=== PATIENT | male | born 1950 | race Caucasian/White ===

== ENCOUNTER 2024-11-25 13:06 | Outpatient (CLI) | payer MEDICARE, SELFPAY ==
--- NOTE | 2024-11-25 15:00 | CRLHL7_ITS ---
For Patients: As a result of the Century Cures Act, medical imaging exams and procedure reports are released immediately into your electronic medical record. You may view this report before your referring provider. If you have questions, please contact your health care provider. 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 images were obtained for attenuation correction and localization, and do not replace a diagnostic quality examination. Blood glucose: 65 mg/dL. Comparison: None Findings: Liver background: SUVMean 2.9 Mediastinal blood pool background: SUVMean 2.3 Head and Neck Brain: No abnormal foci of uptake appreciated. Sinuses, orbits, mastoids: No significant abnormality or abnormal uptake appreciated. Oral cavity, pharynx, larynx: No significant abnormality or abnormal uptake appreciated. Lymph nodes: No enlarged or avid nodes appreciated. Thyroid: Grossly unremarkable. Chest Lungs: There is a 6 x 4 millimeter nodule within the right middle lobe/fissure without increased uptake, unlikely to represent metabolically active malignancy. No abnormal foci of uptake or concerning mass lesion appreciated. Mediastinum: Calcified coronary arterial and aortic atherosclerosis. Lymph nodes: No enlarged or avid nodes appreciated. Abdomen and Pelvis Hepatobiliary: No abnormal foci of uptake. No significant abnormality appreciated. Spleen: Unremarkable. Pancreas: Unremarkable. Adrenal glands: Unremarkable. Kidneys: Parenchyma appears grossly unremarkable with no abnormal uptake appreciated. No calculi. No hydronephrosis. Bowel: No abnormal focal uptake appreciated. No mass lesion. Vascular: Calcified atherosclerosis. Lymph nodes: No enlarged or avid nodes appreciated. Peritoneum: No avid mass. No free air. No free fluid. : No abnormal uptake appreciated. Soft tissues: Focal uptake along the soft tissues of the right foot 1st digit likely degenerative in nature. Bones: No abnormal uptake. No lytic or blastic lesion. No acute or subacute appearing fracture. Degenerative changes of the spine and pelvis. Impression: No evidence of FDG avid disease. Dictated by Gilmar Hogan MD @ 11/28/2024 5:18:37 PM (Electronically Signed)
== END 2024-11-25 13:07 | disposition home or self-care (01) ==
LOC: RAD 13:07
PROVIDERS: PCP Family Medicine; Visit Provider Internal Medicine Hematology & Oncology
DX: C43.62 Malignant melanoma of left upper limb, including shoulder (principal)
CPT/HCPCS: 78816; A9552

== ENCOUNTER 2025-02-21 09:00 | Outpatient (RCR) | payer MEDICARE, SELFPAY ==
--- NOTE | 2024-08-20 13:51 | URNOTE ---
Request received for authorization for Keytruda (pembrolizumab) (J9271) 200 mg every 21 days, total of 18 doses (3600mg), date range: 09/06/2024 to 09/05/2025. Prior authorization is approved per [employer] on behalf of [facility] Ref#[id number].
[2024-09-06 10:49] LABS: Hematocrit 41.3 % (37.0-53.0); Hemoglobin* 14.1 gm/dL (13.5-17.5); Immature Granulocytes Abs Auto 0.01 K/uL (0.00-0.30); Immature Granulocytes Pct Auto 0.1 %; Mean Corpuscular HGB Conc 34 gm/dL (32-36); Mean Corpuscular Hemoglobin 30 pg (26-34); Mean Corpuscular Volume 89 fL (80-100); RDW Coefficient of Variation % 14.0 % (11.5-15.5); Red Blood Count 4.64 m/uL (4.30-5.90); White Blood Count* 8.33 K/uL (4.50-11.00)
[2024-09-06 10:50] LABS: Lymphocytes Absolute Auto 1.60 K/uL (0.90-2.90); Slide Review Reflex No
[2024-09-06 11:02] LABS: Albumin* 4.3 g/dL (3.3-5.0); Chloride* 107 mmol/L (96-114); Sodium* 141 mmol/L (135-149)
[2024-09-06 11:03] LABS: Potassium* 3.9 mmol/L (3.6-5.1)
[2024-09-06 11:05] LABS: Alanine Aminotransferase* 26 U/L (4-50); Alkaline Phosphatase* 59 U/L (40-150); Anion Gap 9 mEq/L (7-15); Aspartate Amino Transferase* 44 U/L (12-35); Bilirubin Total* 0.6 mg/dL (0.1-1.5); Blood Urea Nitrogen* 22 mg/dL (7-30); Carbon Dioxide* 25 mmol/L (20-32); Creatinine* 0.8 mg/dL (0.5-1.5); Est. Creatinine Clearance* 75.11; Estimated Glomerular Filt Rate 92 ml/min; Total Protein* 7.3 g/dL (6.0-8.3)
[2024-09-06 11:06] LABS: Calcium* 8.9 mg/dL (8.4-10.6); Glucose* 85 mg/dL (60-115)
[2024-09-06] MEDS: PEMBROLIZUMAB 200 MG, TUBING PRIMARY 1 EACH, In-line 0.2 micron filter set 1 EACH in 0.... 216 MG IVPB (12:25)
[2024-09-06] MEDS: SODIUM CHLORIDE 0.9 % (FLUSH) 10 ML SYRINGE IVF (12:27)
--- NOTE | 2024-09-06 16:03 | ONC.NURNOTE ---
PSDS = 0 no supportive services requested no concerns
--- NOTE | 2024-09-07 15:09 | ONC.NURNOTE ---
post treatment follow up message left on voice mail to call [facility] checking on tolerance and if any concerns after yesterday's treatment
[2024-09-27 08:07] VITALS: BP 153/86; PULSE 65; RESP 20; TEMP 35.6; O2SAT 99
[2024-09-27 08:31] LABS: Hematocrit 41.0 % (37.0-53.0); Hemoglobin* 13.8 gm/dL (13.5-17.5); Immature Granulocytes Abs Auto 0.00 K/uL (0.00-0.30); Immature Granulocytes Pct Auto 0.0 %; Lymphocytes Absolute Auto 1.92 K/uL (0.90-2.90); Mean Corpuscular HGB Conc 34 gm/dL (32-36); Mean Corpuscular Hemoglobin 30 pg (26-34); Mean Corpuscular Volume 89 fL (80-100); RDW Coefficient of Variation % 13.6 % (11.5-15.5); Red Blood Count 4.61 m/uL (4.30-5.90); White Blood Count* 5.25 K/uL (4.50-11.00)
[2024-09-27 08:39] LABS: Slide Review Reflex No
[2024-09-27 08:51] LABS: Albumin* 4.4 g/dL (3.3-5.0); Chloride* 104 mmol/L (96-114); Potassium* 4.3 mmol/L (3.6-5.1); Sodium* 139 mmol/L (135-149)
[2024-09-27 08:54] LABS: Alanine Aminotransferase* 25 U/L (4-50); Alkaline Phosphatase* 57 U/L (40-150); Anion Gap 7 mEq/L (7-15); Aspartate Amino Transferase* 43 U/L (12-35); Bilirubin Total* 0.9 mg/dL (0.1-1.5); Blood Urea Nitrogen* 26 mg/dL (7-30); Calcium* 9.4 mg/dL (8.4-10.6); Carbon Dioxide* 28 mmol/L (20-32); Creatinine* 0.9 mg/dL (0.5-1.5); Est. Creatinine Clearance* 73.07; Estimated Glomerular Filt Rate 89 ml/min; Glucose* 88 mg/dL (60-115); Total Protein* 7.4 g/dL (6.0-8.3)
[2024-09-27] MEDS: SODIUM CHLORIDE 0.9 % (FLUSH) 10 ML SYRINGE IVF (10:00)
[2024-09-27] MEDS: PEMBROLIZUMAB 200 MG, TUBING PRIMARY 1 EACH, In-line 0.2 micron filter set 1 EACH in 0.... 216 MG IVPB (10:22)
[2024-10-19 10:07] LABS: Hematocrit 43.0 % (37.0-53.0); Hemoglobin* 14.5 gm/dL (13.5-17.5); Immature Granulocytes Abs Auto 0.02 K/uL (0.00-0.30); Immature Granulocytes Pct Auto 0.2 %; Lymphocytes Absolute Auto 2.66 K/uL (0.90-2.90); Mean Corpuscular HGB Conc 34 gm/dL (32-36); Mean Corpuscular Hemoglobin 30 pg (26-34); Mean Corpuscular Volume 89 fL (80-100); RDW Coefficient of Variation % 13.6 % (11.5-15.5); Red Blood Count 4.84 m/uL (4.30-5.90); Slide Review Reflex No; White Blood Count* 8.17 K/uL (4.50-11.00)
[2024-10-19 10:36] LABS: Albumin* 4.5 g/dL (3.3-5.0); Chloride* 106 mmol/L (96-114); Potassium* 3.4 mmol/L (3.6-5.1); Sodium* 142 mmol/L (135-149)
[2024-10-19 10:39] LABS: Alanine Aminotransferase* 22 U/L (4-50); Alkaline Phosphatase* 61 U/L (40-150); Anion Gap 10 mEq/L (7-15); Aspartate Amino Transferase* 39 U/L (12-35); Bilirubin Total* 0.9 mg/dL (0.1-1.5); Blood Urea Nitrogen* 21 mg/dL (7-30); Calcium* 9.4 mg/dL (8.4-10.6); Carbon Dioxide* 26 mmol/L (20-32); Creatinine* 0.9 mg/dL (0.5-1.5); Est. Creatinine Clearance* 73.07; Estimated Glomerular Filt Rate 89 ml/min; Glucose* 88 mg/dL (60-115); Total Protein* 7.9 g/dL (6.0-8.3)
--- NOTE | 2024-10-19 12:37 | URNOTE ---
Request received for authorization for Keytruda (pembrolizumab) (J9271) 400 mg, every 42 days, total of 8 doses (3200mg), date range: 10/20/2024 to 09/05/2025. Prior authorization is approved per [employer] on behalf of [facility] Ref#[id number].
[2024-10-20] MEDS: PEMBROLIZUMAB 400 MG, TUBING PRIMARY 1 EACH, In-line 0.2 micron filter set 1 EACH in 0.... 232 MG IVPB (10:02)
--- NOTE | 2024-11-17 08:25 | ONC.NURNOTE ---
Received phone call from [facility]. Insurance has not cleared yet for patient's PET scan, so it has been moved to 12/02/2024. [facility] notes that they have left two messages about this with no return call. [employer] left message to call [facility] to discuss change in appointments.
[2024-11-25 13:05] LABS: Hematocrit 42.9 % (37.0-53.0); Hemoglobin* 14.6 gm/dL (13.5-17.5); Immature Granulocytes Abs Auto 0.01 K/uL (0.00-0.30); Immature Granulocytes Pct Auto 0.2 %; Lymphocytes Absolute Auto 2.02 K/uL (0.90-2.90); Mean Corpuscular HGB Conc 34 gm/dL (32-36); Mean Corpuscular Hemoglobin 30 pg (26-34); Mean Corpuscular Volume 89 fL (80-100); RDW Coefficient of Variation % 13.2 % (11.5-15.5); Red Blood Count 4.82 m/uL (4.30-5.90); White Blood Count* 6.52 K/uL (4.50-11.00)
[2024-11-25 13:07] LABS: Slide Review Reflex No
[2024-11-25 13:18] LABS: Albumin* 4.4 g/dL (3.3-5.0); Chloride* 101 mmol/L (96-114); Potassium* 3.9 mmol/L (3.6-5.1); Sodium* 139 mmol/L (135-149)
[2024-11-25 13:21] LABS: Alanine Aminotransferase* 23 U/L (4-50); Alkaline Phosphatase* 64 U/L (40-150); Anion Gap 7 mEq/L (7-15); Aspartate Amino Transferase* 47 U/L (12-35); Bilirubin Total* 0.8 mg/dL (0.1-1.5); Blood Urea Nitrogen* 24 mg/dL (7-30); Calcium* 9.5 mg/dL (8.4-10.6); Carbon Dioxide* 31 mmol/L (20-32); Creatinine* 0.9 mg/dL (0.5-1.5); Est. Creatinine Clearance* 73.07; Estimated Glomerular Filt Rate 89 ml/min; Glucose* 85 mg/dL (60-115); Total Protein* 7.9 g/dL (6.0-8.3)
[2024-11-29] MEDS: SODIUM CHLORIDE 0.9 % (FLUSH) 10 ML SYRINGE IVF (09:10)
[2024-11-29] MEDS: PEMBROLIZUMAB 400 MG, TUBING PRIMARY 1 EACH, In-line 0.2 micron filter set 1 EACH in 0.... 232 MG IVPB (09:13)
[2025-01-10 08:08] LABS: Hematocrit 43.3 % (37.0-53.0); Hemoglobin* 14.6 gm/dL (13.5-17.5); Immature Granulocytes Abs Auto 0.01 K/uL (0.00-0.30); Immature Granulocytes Pct Auto 0.2 %; Lymphocytes Absolute Auto 2.37 K/uL (0.90-2.90); Mean Corpuscular HGB Conc 34 gm/dL (32-36); Mean Corpuscular Hemoglobin 30 pg (26-34); Mean Corpuscular Volume 89 fL (80-100); RDW Coefficient of Variation % 13.3 % (11.5-15.5); Red Blood Count 4.87 m/uL (4.30-5.90); White Blood Count* 6.39 K/uL (4.50-11.00)
[2025-01-10 08:12] LABS: Slide Review Reflex No
[2025-01-10 08:21] LABS: Albumin* 4.2 g/dL (3.3-5.0); Chloride* 106 mmol/L (96-114); Potassium* 4.2 mmol/L (3.6-5.1); Sodium* 139 mmol/L (135-149)
[2025-01-10 08:24] LABS: Alanine Aminotransferase* 18 U/L (4-50); Alkaline Phosphatase* 53 U/L (40-150); Anion Gap 5 mEq/L (7-15); Aspartate Amino Transferase* 38 U/L (12-35); Bilirubin Total* 0.6 mg/dL (0.1-1.5); Blood Urea Nitrogen* 25 mg/dL (7-30); Calcium* 9.3 mg/dL (8.4-10.6); Carbon Dioxide* 28 mmol/L (20-32); Creatinine* 0.9 mg/dL (0.5-1.5); Est. Creatinine Clearance* 73.07; Estimated Glomerular Filt Rate 89 ml/min; Glucose* 92 mg/dL (60-115); Total Protein* 7.3 g/dL (6.0-8.3)
[2025-01-10] MEDS: PEMBROLIZUMAB 400 MG, TUBING PRIMARY 1 EACH, In-line 0.2 micron filter set 1 EACH in 0.... 232 MG IVPB (09:47)
[2025-01-10] MEDS: SODIUM CHLORIDE 0.9 % (FLUSH) 10 ML SYRINGE IVF (09:51)
[2025-02-21 09:08] LABS: Hematocrit 41.7 % (37.0-53.0); Hemoglobin* 13.9 gm/dL (13.5-17.5); Immature Granulocytes Abs Auto 0.01 K/uL (0.00-0.30); Immature Granulocytes Pct Auto 0.2 %; Lymphocytes Absolute Auto 2.04 K/uL (0.90-2.90); Mean Corpuscular HGB Conc 33 gm/dL (32-36); Mean Corpuscular Hemoglobin 30 pg (26-34); Mean Corpuscular Volume 90 fL (80-100); RDW Coefficient of Variation % 13.5 % (11.5-15.5); Red Blood Count 4.65 m/uL (4.30-5.90); White Blood Count* 6.37 K/uL (4.50-11.00)
[2025-02-21 09:10] LABS: Slide Review Reflex No
[2025-02-21 09:12] VITALS: BP 135/81; PULSE 58; RESP 14; TEMP 36.6; O2SAT 97
[2025-02-21 09:22] LABS: Albumin* 4.1 g/dL (3.3-5.0); Chloride* 107 mmol/L (96-114); Potassium* 4.3 mmol/L (3.6-5.1); Sodium* 140 mmol/L (135-149)
[2025-02-21 09:24] LABS: Blood Urea Nitrogen* 20 mg/dL (7-30); Creatinine* 0.9 mg/dL (0.5-1.5); Est. Creatinine Clearance* 73.07; Estimated Glomerular Filt Rate 89 ml/min
[2025-02-21 09:25] LABS: Alanine Aminotransferase* 19 U/L (4-50); Alkaline Phosphatase* 50 U/L (40-150); Anion Gap 4 mEq/L (7-15); Aspartate Amino Transferase* 37 U/L (12-35); Bilirubin Total* 0.5 mg/dL (0.1-1.5); Calcium* 9.1 mg/dL (8.4-10.6); Carbon Dioxide* 29 mmol/L (20-32); Glucose* 96 mg/dL (60-115); Total Protein* 7.3 g/dL (6.0-8.3)
[2025-02-21] MEDS: SODIUM CHLORIDE 0.9 % (FLUSH) 10 ML SYRINGE IVF (10:58)
[2025-02-21] MEDS: PEMBROLIZUMAB 400 MG, TUBING PRIMARY 1 EACH, In-line 0.2 micron filter set 1 EACH in 0.... 232 MG IVPB (10:58)
== END 2025-03-05 23:59 | disposition home or self-care (01) ==
LOC: CCIC 09:00
PROVIDERS: Clinical Nurse Specialist; Internal Medicine Hematology & Oncology; PCP Family Medicine; Referring Provider Family Medicine; Visit Provider Physician Assistant
DX: Z51.12 Encounter for antineoplastic immunotherapy (principal); C43.62 Malignant melanoma of left upper limb, including shoulder; Z51.81 Encounter for therapeutic drug level monitoring; Z79.899 Other long term (current) drug therapy
CPT/HCPCS: 36415; 80053; 84443; 85025; 96413; 99202; 99204; 99214; 99215; G0463; J7050; J9271

== ENCOUNTER 2025-03-10 12:20 | Outpatient (CLI) | payer MEDICARE, SELFPAY ==
--- NOTE | 2025-03-10 12:30 | CRLHL7_ITS ---
For Patients: As a result of the Century Cures Act, medical imaging exams and procedure reports are released immediately into your electronic medical record. You may view this report before your referring provider. If you have questions, please contact your health care provider. INDICATION: Malignant melanoma of skin. TECHNIQUE: Sagittal and axial T1 axial FLAIR T2 diffusion-weighted and gadolinium enhanced multi planer T1 weighted sequences of the brain. 20 mL of Dotarem intravenous contrast was utilized. FINDINGS: Lateral 3rd and 4th ventricles are normal in size and shape. There is no mass effect or brain edema. No areas of diffusion restriction. No evidence of recent ischemic infarction. No evidence of intracranial hemorrhage. No areas of pre-contrast intrinsic T1 shortening. No enhancing intra-axial or extra-axial lesion to suggest metastatic disease. Few punctate foci of nonenhancing FLAIR/T2 hyperintensity within cerebral white matter are nonspecific but common in this age group and usually relate to a history of migraine or mild chronic microvascular ischemia. The orbits, sella turcica and skullbase are unremarkable. There is mild focal mucosal thickening in the anterior left maxillary sinus. Mastoid air cells and skullbase otherwise unremarkable. IMPRESSION: No evidence of intracranial metastatic neoplasm. No evidence of acute intracranial abnormality. Dictated by Abner Brooke MD @ 03/11/2025 10:38:26 AM (Electronically Signed)
--- NOTE | 2025-03-10 13:30 | CRLHL7_ITS ---
For Patients: As a result of the 21st Century Cures Act, medical imaging exams and procedure reports are released immediately into your electronic medical record. You may view this report before your referring provider. If you have questions, please contact your health care provider. EXAM: FDG PET-CT Whole Body CLINICAL INFORMATION: 74-year-old man with history of melanoma. Restaging. TECHNIQUE: Radiopharmaceutical: 18F-fluorodeoxyglucose (18F-FDG) Dose: milliCurie. Blood glucose: mg/dL. Image acquisition: At approximately 60 minutes following IV tracer administration via a vein, positron emission tomography was performed from the vertex of the skull to the feet. Non-contrast low-dose helical CT imaging was performed over the same range without breath-hold for attenuation correction of PET images and anatomic correlation; it is neither sufficient, nor should it be substituted for diagnostic purposes. COMPARISON: FDG PET-CT 11/25/2024, 08/05/2024. MRI brain 03/10/2025. FINDINGS: Mediastinal blood pool FDG uptake: SUVMax 2.2 (301:156, 202:155) Liver background parenchymal FDG uptake: SUVMax 3.3 (301:201, 202:200) PET Findings: Intracranial brain lesions are inadequately characterized and staged by FDG PET-CT. Refer to recent brain MRI for assessment and characterization of any intracranial lesions. Within these limitations, no gross abnormal focal increased FDG uptake intracranially. No abnormal FDG avid lymphadenopathy. No abnormal FDG uptake in the visualized skeleton. -New mild cutaneous FDG uptake in the left elbow SUVMax 3.0 (image 219), without definite CT correlate. Tracer uptake elsewhere is physiologic. Non-PET findings: Non FDG avid subcentimeter pulmonary nodules, measuring up to an unchanged 0.9 cm at a perifissural lung nodule in the right middle lobe (202:167) since 08/05/2024, too small to characterize but favored to represent benign intrapulmonary lymph nodes. 4.4 x 4.2 cm ascending thoracic aortic aneurysm. Sequela of granulomatous disease. Coronary artery calcifications. Atherosclerotic calcifications of the thoracic and abdominal aorta. Contrast in bilateral renal calyces, ureters, and bladder from same day earlier contrast imaging exam. Prostatomegaly. Multilevel degenerative changes in the spine. IMPRESSION: 1. No definite evidence of FDG avid malignancy. 2. New mild cutaneous FDG uptake in the left elbow without definite CT correlate, is likely reactive/inflammatory. Correlate with direct visual inspection. 3. 4.4 x 4.2 cm ascending thoracic aortic aneurysm. Dictated by Paul Noe MD @ 03/14/2025 10:59:07 PM (Electronically Signed)
== END 2025-03-10 12:21 | disposition home or self-care (01) ==
LOC: MRI 12:21
PROVIDERS: PCP Family Medicine; Visit Provider Physician Assistant
DX: C43.62 Malignant melanoma of left upper limb, including shoulder (principal); I71.21 Aneurysm of the ascending aorta, without rupture; C43.9 Malignant melanoma of skin, unspecified
CPT/HCPCS: 70553; 78816; A9552; A9575